=== PATIENT | female | born 1970 | race Caucasian/White ===

== ENCOUNTER 2017-03-24 13:59 | Emergency (ER) | payer MEDICAID ==
[2017-03-24 15:58] VITALS: BP 110/70
== END 2017-03-24 15:56 | disposition home or self-care (01) ==
LOC: ED 13:59
DX: K04.7 Periapical abscess without sinus (principal)

== ENCOUNTER 2017-06-15 13:35 | Emergency (ER) | payer SELFPAY ==
[2017-06-15 14:18] LABS: BASOPHIL % 0.3 % (0-2); PLATELET COUNT 272 x10^3mcL (130-400); RED CELL DISTRIBUTION WIDTH 13.8 % (11.5-14.5)
[2017-06-15 14:35] LABS: CARBON DIOXIDE 29.1 mmol/L (21-32); CHLORIDE SERUM 105 mmol/L (98-107); CREATININE SERUM 0.6 mg/dL (0.6-1.0); GFR1 > 60 mL/min; GLUCOSE SERUM 114 mg/dL (74-106); SODIUM SERUM 142 mmol/L (136-145)
[2017-06-15 14:39] LABS: ALBUMIN 3.7 g/dL (3.4-5.0); ALKALINE PHOSPHATASE 112 U/L (46-116); ALT/SGPT 69 U/L (14-59); AMYLASE 66 U/L (25-115); AST/SGOT 133 U/L (15-37); BILIRUBIN TOTAL 0.4 mg/dL (0.20-1.00); LIPASE 118 IU/L (73-393); TOTAL PROTEIN, SERUM 7.8 g/dL (6.4-8.2)
[2017-06-15 14:47] VITALS: BP 103/66
== END 2017-06-15 16:45 | disposition home or self-care (01) ==
LOC: ED 13:35
PROVIDERS: Emergency Medicine
DX: K80.20 Calculus of gallbladder without cholecystitis without obstruction (principal)
CPT/HCPCS: J1170; J1885; J2405; J7030; Q0092